=== PATIENT | male | born 2000 | race Caucasian/White ===

== ENCOUNTER 2022-01-21 12:45 | Emergency (ER) | payer OTHER ==
[~2022-01-21] VITALS: Ht 172.7 cm; Wt 59.0 kg
[2022-01-21 19:21] VITALS: BP 119/75
== END 2022-01-21 19:21 | disposition home or self-care (01) | DRG 556 ==
LOC: ED 12:45
DX: M79.672 Pain in left foot (principal); W10.9XXA Fall (on) (from) unspecified stairs and steps, initial encounter; Y92.009 Unspecified place in unspecified non-institutional (private) residence as the place of occurrence of the external cause